=== PATIENT | male | born 1965 | race Caucasian/White ===

== ENCOUNTER 2021-01-13 10:13 | Outpatient (RCR) | payer BC, SELFPAY ==
[2014-01-28 19:38] VITALS: BMI 24.3
[2021-01-13] MEDS: COVID-19 VACC, MRNA(PFIZER)/PF 30 MCG/0.3 ML SYRINGE IM (11:03)
[2021-02-03] MEDS: COVID-19 VACC, MRNA(PFIZER)/PF 30 MCG/0.3 ML SYRINGE IM (11:03)
== END 2021-01-13 23:59 ==
LOC: IMMUN 10:13
PROVIDERS: PCP Family Medicine; Visit Provider Family Medicine
DX: Z23 Encounter for immunization (principal)
CPT/HCPCS: 0001A; 0002A; 91300

== ENCOUNTER → 2024-01-10 | Outpatient (CLI) | payer OTHER, SELFPAY ==
--- NOTE | 2024-01-10 10:05 | EKG12_ITS ---
Test Reason : PRE-OP Blood Pressure : / mmHG Vent. Rate : 058 BPM Atrial Rate : 058 BPM P-R Int : 158 ms QRS Dur : 084 ms QT Int : 432 ms P-R-T Axes : 044 000 017 degrees QTc Int : 424 ms Sinus bradycardia Otherwise normal ECG Confirmed by DAVID KWONG, HENRIK ([id number]), tape editor HORTENCIA ROBBINS ([id number]) on 01/11/2024 2:11:19 PM Referred By: Kan Marie Confirmed By:HENRIK HERNANDEZ MD
== END | disposition home or self-care (01) ==
LOC: PSN 10:02
PROVIDERS: PCP Family Medicine; Referring Provider Orthopaedic Surgery; Visit Provider Orthopaedic Surgery
DX: Z01.810 Encounter for preprocedural cardiovascular examination (principal)
CPT/HCPCS: 93005